=== PATIENT | male | born 1940 | race Caucasian/White ===

== ENCOUNTER 2017-11-17 09:10 | Emergency (ER) | payer OTHER ==
--- NOTE | 2017-11-17 09:37 | EDPHY ---
H & P Stated Complaint: Fell onto left buttock 11/14/17, unable to stop the bleeding, on Xarelto. - Personal History Current Tetanus Diphtheria and Acellular Pertussis (TDAP): Yes - Medical/Surgical History Hx Asthma: No Hx Chronic Respiratory Disease: No Hx Diabetes: Yes Hx Cardiac Disease: Yes Hx Renal Disease: No Hx Cirrhosis: No Hx Alcoholism: No Hx HIV/AIDS: No Hx Splenectomy or Spleen Trauma: No Other PMH: A Fib, DM2. On Oxygen. Glaucoma. - Social History Smoking Status: Never smoked Time Seen by Provider: 11/17/17 09:26 HPI/ROS: CHIEF COMPLAINT: Left buttock pain and bleeding HISTORY OF PRESENT ILLNESS: 76-year-old male on daily Xarelto for history of atrial fibrillation states that 4 days ago he sustained a mechanical fall onto his left buttock, tripped on stairs. No head injury. No back pain injury. No genitalia injury. He notes an area on the left buttock where he has had a blood blister which has been bleeding intermittently. Currently hemostatic. He is complaining of underlying left buttock pain as well. No straddle injury. No dizziness. No syncope or near syncope. No chest pain. PRIMARY CARE PROVIDER: Dr. Yazan Chowdhury REVIEW OF SYSTEMS: A ten point review of systems was performed and is negative with the exception of the items mentioned in the HPI PAST MEDICAL/SURGICAL HISTORY: Positive for daily Xarelto. History of atrial fibrillation. Transport primarily via a electric scooter but is able to transfer and walk a few steps. SOCIAL HISTORY: denies alcohol use at time of incident PHYSICAL EXAM 1) GENERAL: obese, alert and oriented. Appears to be in no acute distress. Answering questions appropriately. 2) HEAD: Normocephalic, atraumatic 3) HEENT: Pupils equal, round, reactive to light bilaterally. Negative Horners. Nasopharynx, oropharynx, clear. No deformity or angulation of nose. No septal hematoma. No rhinorrhea. No oral trauma. Ears bilaterally with normal tympanic membranes. No hemotympanum. No fluid or blood in the external auditory canal. No raccoon eyes. No Matute sign. Teeth are normally aligned with no gross malocclusion, TMJ bilaterally nontender, facial bones nontender including the zygomatic arch, maxilla mandible. 4) NECK: No cervical collar is on. Posterior cervical spine is nontender, no stepoff, no effusion. Full range of motion which does not elicit any midline cervical spine pain, no posterior midline tenderness, no step-off. 5) LUNGS: Clear to auscultation bilaterally, no wheezes, no rhonchi, no retractions. No obvious signs of trauma. No chest wall pain. No flaring, no grunting. Moving symmetrically. No crepitus. 6) HEART: [Regular rate and rhythm, 7) ABDOMEN: No guarding, no rebound, no focal tenderness, no peritoneal signs, no signs of trauma, no ecchymosis 8) MUSCULOSKELETAL: The patient's left buttock he has large area of ecchymosis with hemostatic blood blisters. There is some extension of this ecchymoses into the cleft of the buttock with associated tenderness in the left buttock region. No sacral or coccygeal pain. No extension to the perineum or scrotum. Bilateral lower bilateral lower extremities are not shortened or malrotated. 9) BACK: No midline vertebral tenderness, no fluctuance, no step-off, no obvious trauma, no visual or palpable abnormality. 10) SKIN: No laceration. No abrasion DIFFERENTIAL DIAGNOSIS: In no particular include but limited to anemia, extravasation, fracture (Vamshi Smith) Constitutional: Initial Vital Signs Temperature (C) 36.5 C 11/17/17 09:11 Heart Rate 109 H 11/17/17 09:11 Respiratory Rate 16 11/17/17 09:11 Blood Pressure 131/75 H 11/17/17 09:11 O2 Sat (%) 92 11/17/17 09:11 O2 Delivery Mode Room Air Allergies/Adverse Reactions: No Known Allergies Allergy (Unverified 11/17/17 09:19) Home Medications: Medication Instructions Recorded Allopurinol 11/17/17 Aspirin 11/17/17 Lumigan 0.01% (*) 11/17/17 Metformin 1000 mg 11/17/17 Tylenol 325mg (*) 11/17/17 Xarelto 11/17/17 Medical Decision Making - Diagnostics Imaging Results: Images reviewed myself (Vamshi Smith) ED Course/Re-evaluation: 9:37 a.m.: Will obtain x-ray and CBC. Care of patient under supervision of secondary supervising physician Dr Sobia Hui. 10:25 a.m.: Patient was re-evaluated with serial examinations and case discussed with secondary supervising physician Dr. Sobia Hui. I discussed the negative x-ray. He is currently hemostatic. I suspect that because the patient spends which reveals time sitting on this area this continuously irritates the area. Bulky padding applied to this area and recommend that he is able to sit or lay without direct pressure on this area this will more than likely assist with his healing. His H&H were obtained which were normal. Plan will be discharge home. He feels comfortable being discharged as does his . All questions and concerns addressed by myself. Usual and customary discharge precautions and instructions provided. (Vamshi Smith) The patient was evaluated and managed by the physician sales office assistant. I have reviewed this chart and I agree with the findings and plan of care as documented , as indicated by my signature. I am the secondary supervising physician. ( Sobia Hui) - Data Points Laboratory Results: Laboratory Results 11/17/17 09:40 Departure - Departure Disposition: Home, Routine, Self-Care Clinical Impression: Traumatic ecchymosis of buttock Condition: Good Instructions: Ecchymosis (ED) Additional Instructions: Try not to sit or lay directly on this area. Apply bulky dressings. Return to the ER if you have new or worsening pain or bleeding that does not stop. Referrals: Yazan Chowdhury MD [Primary Care Provider] - 2-3 days, call for appt.
[2017-11-17 09:51] LABS: PLATELET COUNT 174 10^3/uL (150-400)
[2017-11-17 10:50] VITALS: BP 103/73; PULSE 110; RESP 18; TEMP 98.6; O2SAT 91
== END 2017-11-17 11:08 | disposition home or self-care (01) ==
DX: S30.0XXA Contusion of lower back and pelvis, initial encounter (principal); E11.9 Type 2 diabetes mellitus without complications; Z79.82 Long term (current) use of aspirin; Z79.84 Long term (current) use of oral hypoglycemic drugs; W10.9XXA Fall (on) (from) unspecified stairs and steps, initial encounter